=== PATIENT | female | born 1970 | race Caucasian/White ===

== ENCOUNTER 2016-05-22 10:18 | Emergency (ER) | payer SELFPAY ==
[~2016-05-22] VITALS: Wt 71.0 kg
[2016-05-22] MEDS ORDERED: PSEU30TA38 PO (10:45)
[2016-05-22] MEDS ORDERED: FLUT9.9S NASAL (10:45)
[2016-05-22] MEDS ORDERED: D-ME473S18 PO (10:45)
[2016-05-22] MEDS ORDERED: BENZ100C70 PO (10:45)
--- NOTE | 2016-05-22 17:19 | ERD ---
DATE OF SERVICE: HISTORY OF PRESENT ILLNESS: The patient is a 45-year-old female complaining of sinus pressure with nasal congestion. The patient is coming in complaining of sinus pressure. She is not taking medica tion. No fevers. She has a mild cough and a mild sore throat. She has been taking Robitussin. No fevers, no chest pain, no shortness of breath, no pleuritic chest pain, no sick contacts. PAST MEDICAL HISTORY: Denies. ALLERGIES TO MEDICATIONS: Denies. PAST SURGICAL HISTORY: . SOCIAL HISTORY: Denies. REVIEW OF SYSTEMS: A 12-point review of systems was done. Refer to HPI for positives, all other sy stems negative. PHYSICAL EXAMINATION VITAL SIGNS: Temperature is 97.9, pulse 78, blood pressure is 128/61, respiratory rate 18, O2 satur ation 99% on room air, and pain intensity is 0/10. GENERAL: The patient is well-appearing, well-nourished, no acute distress. HEART: Regular rate and rhythm. No murmurs, clicks, rubs or gallops. No S3 or S4. CHEST: Clear to auscultation bilaterally. There are no rales, wheezes or rhonchi. HEENT: Atraumatic. Conjunctivae are pink. Pupils equal, round, and reactive to light. There is no s cleral icterus. Tympanic membranes clear bilaterally. Oropharynx clear. No nystagmus or photophobia . ABDOMEN: Soft, nontender and nondistended. Good bowel sounds. No rebound or guarding. No gross lamberto tonitis. No gross organomegaly or masses. No Stanley sign or McBurney point tenderness. SKIN: There is no apparent rash or petechia. The skin is warm and dry. NECK: C-spine is soft and supple. There is no meningismus. There is no cervical lymphadenopathy. No JVD. No bruits. No goiter. DIAGNOSIS: Viral sinusitis. MEDICAL DECISION MAKING: I have low suspicion for pneumonia, low suspicion for bacterial HEENT infe ction, low suspicion for meningitis or sepsis. The patient's exams are likely associated with viral etiology. I did not feel there was indication for imaging or further blood work at this time. DISCHARGE: The patient is discharged stable. Patient was given a prescription for Flonase, Sudafed , Tessalon, and promethazine, told to follow up with primary care within 1 to 2 days for reevaluatio n. The patient was told if symptoms progress or worsen to return to the ER. All other questions an swered at time of discharge. Discharge summary given at the time of departure. Patient understood and complied with plan. Dictated By: GLORIA PRATT for BRISA IBRAHIM/SREEKANTH Conf#: [id number] DID#: [id number]
== END 2016-05-22 11:00 | disposition home or self-care (01) ==
LOC: FTE 10:18
DX: J01.90 Acute sinusitis, unspecified (principal); J45.909 Unspecified asthma, uncomplicated
CPT/HCPCS: 99284

== ENCOUNTER 2016-07-16 17:26 | Emergency (ER) | payer BC ==
[~2016-07-16] VITALS: Ht 157.5 cm; Wt 82.0 kg
[~2016-07-16 17:26] MED LIST: BENZ100C70 PO; D-ME473S18 PO; FLUT9.9S NASAL; PSEU30TA38 PO
[2016-07-16 17:29] VITALS: Ht 157.5 cm; Wt 82.0 kg
[2016-07-16] MEDS ORDERED: KETOROLAC 15 MG INJ IM STA (19:35)
--- NOTE | 2016-07-16 19:41 | ERD ---
ER Documentation Chief Complaint Date/Time DATE: 07/16/16 TIME: 19:38 Chief Complaint RT ANKLE PAIN /SWELLING X 1 DAY , NO TRAUMA HPI This 46-year-old female presents to emergency department today for evaluation of sudden onset of right ankle pain and swelling 1 day. 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 Patient reports she has pain across her toes, her great toe is tender, patient reports difficulty ambulating, denies any history of osteoarthritis or gout. Patient denies any back pain, loss of sensation, or fever. ROS All systems reviewed and are negative except as per history of present illness. Medications Home Meds Active Scripts Dextromethorphan Hb-Promethazine Hcl (Promethazine DM Syrup) 473 Ml Syrup, 5 ML PO Q6H Y for COUGH, #4 OZ Prov:PITA SIBLEY PA-C 05/22/16 Benzonatate* (Tessalon Perle*) 100 Mg Capsule, 100 MG PO TID, #30 CAP Prov:PITA SIBLEY PA-C 05/22/16 Pseudoephedrine Hcl* (Pseudoephedrine Hcl*) 30 Mg Tablet, 30 MG PO Q6 Y for CONGESTION, #30 TAB Prov:PITA SIBLEY PA-C 05/22/16 Fluticasone Propionate (Flonase Allergy Relief) 9.9 Ml [place].susp, 1 SPRAY NASAL DAILY, #1 BOTTLE TO EACH NOSTRIL Prov:PITA SIBLEY PA-C 05/22/16 Reported Medications [None] No Conflict Check 12/15/09 Allergies Allergies: Coded Allergies: No Known Drug Allergies (Verified Allergy, Mild, 12/15/09) PMhx/Soc History of Surgery: Yes (CSECTION) Anesthesia Reaction: No Hx Neurological Disorder: No Hx Respiratory Disorders: Yes (ASTHMA) Hx Cardiac Disorders: No Hx Psychiatric Problems: No Hx Miscellaneous Medical Probl: No Hx Alcohol Use: No Hx Substance Use: No Hx Tobacco Use: No Smoking Status: Never smoker Physical Exam Vitals Vital Signs Date Time Temp Pulse Resp B/P Pulse Ox O2 Delivery O2 Flow Rate FiO2 07/16/16 17:29 99.4 89 18 141/65 100 Vitals stable, triage notes reviewed Physical Exam Const: No acute distress Head: Atraumatic Eyes: Normal Conjunctiva PERRLA, EOMI ENT: Normal External Ears, Nose and Mouth. Mucous membranes moist Neck: Resp: Chest rise and fall symmetrically, clear to auscultation bilaterally, no respiratory distress Cardio: Abd: Skin: No petechiae or rashes, skin intact, toenails thickened possible fungus Back: Ext: Lower Extremity -right ankle Skin: No laceration Compartments: Soft Motor: Limited range of motion with rotation, stiff tonics movement, Sensation: Intact to light touch anterior, superior, and lateral surfaces. Bones: Lateral malleolus tender to palpation Joints: No effusion or laxity Pulses/Perfusion: 2+ DP, Capillary refill < 2 seconds Neur: Awake and alert Psych: Normal Mood and Affect Result Diagram: 07/16/161942 Results 24 hrs Laboratory Tests Test 07/16/16 19:43 White Blood Count 8.510^3/ul Red Blood Count 4.2210^6/ul Hemoglobin 7.1g/dl Hematocrit 26.4% Mean Corpuscular Volume 62.6fl Mean Corpuscular Hemoglobin 16.8pg Mean Corpuscular Hemoglobin Concent 26.9g/dl Red Cell Distribution Width 18.4% Platelet Count 76163^3/UL Mean Platelet Volume 9.7fl Uric Acid 3.2mg/dl Current Medications Medications (Trade) Dose Ordered Sig/Ralph Route PRN Reason Start Time Stop Time Status Last Admin Dose Admin Ketorolac Tromethamine (Toradol) 15 mg ONCE STAT IM 07/16/16 19:35 07/16/16 19:38 DC 07/16/16 19:41 Procedures/MDM PROCEDURE: X-ray right ankle CLINICAL INDICATION: Pain right ankle TECHNIQUE: 3 views right ankle COMPARISON: None FINDINGS: Reference marker is directed toward the lateral malleolus, without evident underlying fracture. There is soft tissue swelling of the lateral malleolus. Generally, with in the ankle there is no evident acute fracture. IMPRESSION: Soft tissue swelling of the lateral malleolus, without acute fracture. RPTAT: [facility] Physician Mayco Date Time Electronically viewed and signed by Physician Mayco on 07/16/2016 20:37 This pleasant 46-year-old female presents to emergency department today with right ankle pain, patient reports that she has pain in her toes, her ankle, difficulty ambulating, symptoms started without injury or trauma. Fracture unlikely that x-ray will be obtained to rule out fracture, findings documented have lateral malleolus without underlying fracture, there is soft tissue swelling of the lateral malleolus. Gout suspected, CBC normal without evidence of infection, uric acid normal without evidence of elevation. Finding not conclusive, uric acid crystals could be in joint, aspiration is not done in the emergency room. Plan to treat with Naprosyn twice daily, Jonathan wrap, and follow- up with primary care physician. I feel the patient is stable for discharge and outpatient management with primary care physician. I have discussed results, examination findings, the treatment plan with the patient and family present prior to discharge. Indications for emergent reevaluation, side effects of medication were also discussed. All questions were answered. Patient verbalizes understanding and agrees with plan of care. Departure Diagnosis: Primary Impression: Ankle pain Laterality: right Chronicity: unspecified Qualified Code: M25.571 - Right ankle pain, unspecified chronicity Condition: Good Patient Instructions: Sprain, Ankle, With X-Ray Referrals: [facility] Additional Instructions: Thank you for for coming to [facility] for your care today. Please ask your nurse or provider if you have questions about your care today and do not leave until all your questions have been answered. Please use any medications given as directed and follow-up with your doctor (or the doctor you were referred to) in the next 2-3 days. If you do not have a primary care doctor you may follow up at the community hospital (listed below). You may also use motrin and tylenol as needed for fever and/or pain unless instructed otherwise by your provider or nurse. Indications for more urgent follow-up have been discussed, but you may return to the Emergency Department at ANY time for any worrisome or worsening symptoms. If you have abdominal pain, please know that no test or exam you received is perfect and you should follow up within 8 hours for continued pain. If you had any imaging studies today, such as an X-Ray or CT Scan, these studies will be reviewed later by a radiologist. You will be called if there are important findings that were not identified today, so make sure the contact information you provided at registration is correct. If you received any narcotic pain control medicine today, such as Vicodin, Morphine or Dilaudid, your coordination and judgment may be affected for a number of hours. Please do not drive or operate heavy machinery, and you may want someone to assist you at home. If you were given a prescription for narcotic medication, be aware that it is very addictive- use sparingly and only if necessary. JUAN BRUNER July 16, 2016 19:41
[2016-07-16 19:55] LABS: ADD SCAN DIFF NO
[2016-07-16 19:57] LABS: ABNORMAL IP MESSAGE 1; HEMATOCRIT 26.4 % (37.0-47.0); HEMOGLOBIN 7.1 g/dl (12.0-16.0); MEAN CORPUSCULAR HEMOGLOBIN 16.8 pg (29.0-33.0); MEAN CORPUSCULAR HGB CONC 26.9 g/dl (32.0-37.0); MEAN CORPUSCULAR VOLUME 62.6 fl (82.0-101.0); MEAN PLATELET VOLUME 9.7 fl (7.4-10.4); PLATELET COUNT 375 10^3/UL (140-415); RED BLOOD COUNT 4.22 10^6/ul (4.20-5.40); RED CELL DISTRIBUTION WIDTH 18.4 % (11.5-14.5); WHITE BLOOD COUNT 8.5 10^3/ul (4.8-10.8)
--- NOTE | 2016-07-16 20:37 | RADRPT ---
PROCEDURE: X-ray right ankle CLINICAL INDICATION: Pain right ankle TECHNIQUE: 3 views right ankle COMPARISON: None FINDINGS: Reference marker is directed toward the lateral malleolus, without evident underlying fracture. The re is soft tissue swelling of the lateral malleolus. Generally, with in the ankle there is no evide nt acute fracture. IMPRESSION: Soft tissue swelling of the lateral malleolus, without acute fracture. RPTAT: [facility] Physician Mayco Date Time Electronically viewed and signed by Malini Pressley Physician on 07/16/2016 20:37 RS/
[2016-07-16 21:15] LABS: EOSINOPHILS # 0.3 10^3/ul (0.0-0.5); LYMPHOCYTES # 2.7 10^3/ul (0.8-2.9); MONOCYTE # 0.6 10^3/ul (0.3-0.9); NEUTROPHIL # 4.8 10^3/ul (1.6-7.5)
[2016-07-16] MEDS ORDERED: NAPR-260 PO (21:15)
[2016-07-16 21:16] LABS: PLATELET ESTIMATE PLT APPEAR ADEQUATE
== END 2016-07-16 21:21 | disposition home or self-care (01) ==
LOC: FTE 17:26
DX: M25.571 Pain in right ankle and joints of right foot (principal); J45.909 Unspecified asthma, uncomplicated
CPT/HCPCS: 73610; 84560; 85025; 96372; J1885; Z7502

== ENCOUNTER 2017-11-08 20:30 | Emergency (ER) | END 2017-11-08 23:45 | disposition left against medical advice (07) ==